=== PATIENT | male | born 1980 ===

== ENCOUNTER 2023-02-06 06:13 | Day surgery (SDC) | payer OTHER ==
[~2023-02-06] VITALS: Ht 167.6 cm; Wt 62.1 kg
[~2023-02-06 06:13] MED LIST: COZAAR25 MG PO; FENOFIB PO; PROPRANOLOL HCL20 MG PO; ZETIA10 MG PO; [UNRECOGNIZED DRUG - OTHER] PO
== END 2023-02-06 10:50 | disposition home or self-care (01) ==
LOC: CIR.AMB 06:13
PROVIDERS: ATTEND Otolaryngology Otology & Neurotology
DX: H65.21 Chronic serous otitis media, right ear (principal); Z20.822 Contact with and (suspected) exposure to COVID-19; I10 Essential (primary) hypertension; D68.9 Coagulation defect, unspecified

== ENCOUNTER 2023-02-06 06:22 | Outpatient (CLI) | payer OTHER | END 2023-02-06 06:23 | disposition home or self-care (01) | LOC: LAB 06:22 | PROVIDERS: ATTEND Otolaryngology Otology & Neurotology | DX: Z03.818 Encounter for observation for suspected exposure to other biological agents ruled out (principal); D68.9 Coagulation defect, unspecified; Z01.89 Encounter for other specified special examinations ==